=== PATIENT | female | born 1945 | race Caucasian/White ===

== ENCOUNTER → 2018-06-19 | Outpatient (CLI) | payer MEDICARE, BC | END | disposition home or self-care (01) | LOC: LABWHC1 09:57 | PROVIDERS: ATTEND Nurse Practitioner Family | DX: Z01.812 Encounter for preprocedural laboratory examination (principal) | CPT/HCPCS: 36415; 82565; 84520 ==

== ENCOUNTER → 2019-03-29 | Outpatient (CLI) | payer MEDICARE, BC ==
--- NOTE | 2019-03-29 18:01 | ECHOF ---
Referral Reason:I34.0 nonrheumatic mitral regurgitation,I65.23 occ MEASUREMENTS -------- HEIGHT: 160.0 cm WEIGHT: 64.4 kg BP: IVSd: 1.3 cm (0.6 - 1.1) LVIDd: 3.7 cm (3.9 - 5.3) LVPWd: 1.2 cm (0.6 - 1.1) IVSs: 1.6 cm LVIDs: 2.7 cm LVPWs: 1.1 cm LA Diam: 4.3 cm (2.7 - 3.8) LAESV Index (A-L): 31.64 ml/m MV EXCURSION: 12.495 mm (> 18.000) MV EF SLOPE: 53 mm/s (70 - 150) EPSS: 0.4 cm MV E Patricio: 0.52 m/s MV DecT: 204 ms MV A Patricio: 0.53 m/s MV E/A Ratio: 0.98 RAP: 5.00 mmHg RVSP: 23.58 mmHg FINDINGS -------- Sinus rhythm. This was a technically adequate study. The left ventricular size is normal. There is mild concentric left ventricular hypertrophy. Overa ll left ventricular systolic function is normal with, an EF between 55 - 60 %. The right ventricle is normal in size. The left atrium is moderately dilated. LA is moderately dilated 34-39 ml/m2 The right atrial size is normal. There is mild aortic valve sclerosis. There is no evidence of aortic regurgitation. Mild mitral annular calcification present. Mild mitral regurgitation is present. Mild tricuspid regurgitation present. Right ventricular systolic pressure is normal at < 35 mmHg. There is no evidence of pulmonary hypertension. There is no pulmonic regurgitation present. The aortic root size is normal. There is no pericardial effusion. CONCLUSIONS -------- 1. Sinus rhythm. 2. This was a technically adequate study. 3. The left ventricular size is normal. 4. There is mild concentric left ventricular hypertrophy. 5. Overall left ventricular systolic function is normal with, an EF between 55 - 60 %. 6. The right ventricle is normal in size. 7. The left atrium is moderately dilated. 8. LA is moderately dilated 34-39 ml/m2 9. The right atrial size is normal. 10. There is mild aortic valve sclerosis. 11. Mild mitral annular calcification present. 12. Mild mitral regurgitation is present. 13. Mild tricuspid regurgitation present. 14. Right ventricular systolic pressure is normal at < 35 mmHg. 15. There is no evidence of pulmonary hypertension. 16. There is no pulmonic regurgitation present. 17. The aortic root size is normal. 18. There is no pericardial effusion. QUILT STUFFER: Belgica Apple RDCS
--- NOTE | 2019-03-29 19:04 | US ---
EXAMINATION TYPE: US carotid duplex BILAT DATE OF EXAM: 03/29/2019 COMPARISON: NONE CLINICAL HISTORY: I34.0 nonrheumatic mitral regurgitation,I65.23 occ. HTN. No hx TIA. Current smoke r. EXAM MEASUREMENTS: RIGHT: Peak Systolic Velocity (PSV) cm/sec ----- Right CCA: 56.4 ----- Right ICA: 85.8 ----- Right ECA: 87.6 ICA/CCA ratio: 1.5 RIGHT: End Diastole cm/sec ----- Right CCA: 8.2 ----- Right ICA: 28.8 ----- Right ECA: 13.8 LEFT: Peak Systolic Velocity (PSV) cm/sec ----- Left CCA: 72.6 ----- Left ICA: 114.0 ----- Left ECA: 72.6 ICA/CCA ratio: 1.6 LEFT: End Diastole cm/sec ----- Left CCA: 20.4 ----- Left ICA: 35.4 ----- Left ECA: 0.0 VERTEBRALS (direction of flow): Right Vertebral: Antegrade Left Vertebral: Antegrade Rhythm: Arrhythmia Left CCA wall thickening. No significant stenosis or elevated velocities. Plaque seen in left bulb. Grayscale, color Doppler, spectral Doppler imaging performed of the carotid arteries. Waveform analys is does not show significant stenosis. IMPRESSION: No hemodynamic significant stenosis of the proximal internal carotid arteries by Doppler criteria, an indirect measurement of carotid stenosis. Incidental note made of cardiac arrhythmia.
--- NOTE | 2019-04-01 08:24 | CTL ---
EXAMINATION TYPE: CT Low Dose Lung DATE OF EXAM ORDERED: 03/29/2019 HISTORY: 73-year-old female Smoker. Lung cancer screening CT DLP: 65.[address] CTDI: 1.90 mGy Automated exposure control for dose reduction was used. SCREENING VISIT: Baseline COMPARISON: None TECHNIQUE: Low dose computed tomography scan was performed through the chest at 1 mm thick sections a nd reconstructed images in the coronal and sagittal plane. CT DIAGNOSTIC QUALITY: Satisfactory FINDINGS: Heart is upper limits of normal in size without pericardial effusion. Some LAD calcifications are not ed. Ectatic ascending aorta at 3.8 cm with mild atherosclerotic arch calcifications and conventional arch vessel branching anatomy. Ectatic upper descending thoracic aorta 3.1 cm. Ectatic mid and lower desc ending thoracic aorta at 2.8 cm. Large caliber to the main right and left pulmonary arteries and 2.8 and 2.6 cm, respectively, suggest ing underlying pulmonary arterial hypertension. No thoracic lymphadenopathy identified by CT size cri teria. Trace biapical pleural parenchymal scarring. Scattered mild emphysematous change. Some focal volume l oss/consolidation in the inferior lingula. Strandy atelectasis within the lower lungs. Suggestion of a tiny hiatal hernia. Otherwise, visualized upper abdomen shows no gross abnormality by noncontrast, low dose technique. Bones: Levoconvex scoliosis along the upper third thoracic spine. Right-sided cervical rib. IMPRESSION: 1. LungRADS 2 - benign. No suspicious pulmonary nodules. 2. Focal volume loss versus consolidation within the inferior lingula. Correlate for any infectious r espiratory signs/symptoms to exclude a focus of pneumonia here. 3. COPD with mild emphysema. Suspect underlying pulmonary arterial hypertension. RECOMMENDATION: 1. Continue annual low-dose lung cancer screening CT. 2. Smoking cessation. 3. Clinical correlation to differentiate between focal subsegmental atelectasis versus early infiltra te in the inferior lingula. FOLLOW UP CT CHEST RECOMMENDATION: [address] LUNG RAD: Lung-Rad 2 Benign Appearance or Behavior
== END | disposition home or self-care (01) ==
LOC: RADCTMAIN 15:56
PROVIDERS: ATTEND Internal Medicine
DX: I08.3 Combined rheumatic disorders of mitral, aortic and tricuspid valves (principal); I65.23 Occlusion and stenosis of bilateral carotid arteries; Z12.2 Encounter for screening for malignant neoplasm of respiratory organs; R91.8 Other nonspecific abnormal finding of lung field; F17.210 Nicotine dependence, cigarettes, uncomplicated
CPT/HCPCS: 93306; 93880; G0297

== ENCOUNTER → 2021-05-28 | Outpatient (CLI) | payer MEDICARE, BC ==
--- NOTE | 2021-05-28 09:36 | XR ---
EXAMINATION TYPE: XR chest 2V DATE OF EXAM: 05/28/2021 COMPARISON: NONE TECHNIQUE: PA and lateral views submitted. HISTORY: Cough FINDINGS: The lungs are clear and there is no pneumothorax, pleural effusion, or focal pneumonia. Hypertrophi c and degenerative change of the spine. Hyperinflation. Biapical pleural thickening. No overt failure . Atherosclerotic change aorta. Mild cardiomegaly. IMPRESSION: 1. No acute process. Correlate for COPD.
== END | disposition home or self-care (01) ==
LOC: RADXRMAIN 08:44
PROVIDERS: ATTEND Internal Medicine
DX: R05.9 Cough, unspecified (principal)
CPT/HCPCS: 71046

== ENCOUNTER → 2022-03-04 | Outpatient (CLI) | payer MEDICARE, BC ==
--- NOTE | 2022-03-04 14:54 | US ---
EXAMINATION TYPE: US carotid duplex BILAT DATE OF EXAM: 03/04/2022 COMPARISON: NONE CLINICAL HISTORY: I65.23 CAROTID STENOSIS. TECHNIQUE: Carotid duplex ultrasound examination. Indirect Doppler criteria was utilized. FINDINGS: EXAM MEASUREMENTS: RIGHT: Peak Systolic Velocity (PSV) cm/sec ----- Right CCA: 66.3 ----- Right ICA: 66.7 ----- Right ECA: 92.2 ICA/CCA ratio: 1.01 RIGHT: End Diastole cm/sec ----- Right CCA: 10.1 ----- Right ICA: 12.5 ----- Right ECA: 0.0 LEFT: Peak Systolic Velocity (PSV) cm/sec ----- Left CCA: 112.0 ----- Left ICA: 115.0 ----- Left ECA: 99.9 ICA/CCA ratio: 1.03 LEFT: End Diastole cm/sec ----- Left CCA: 14.4 ----- Left ICA: 29.2 ----- Left ECA: 0.0 VERTEBRALS (direction of flow): Right Vertebral: Antegrade Left Vertebral: Antegrade Rhythm: Normal LIGHT EQUIPMENT OPERATOR NOTES: No significant stenosis seen. IMPRESSION: No evidence for hemodynamically significant stenosis. Criteria for Assigning % of Stenosis / Diameter reduction (Estimation based on the indirect measurements of the internal carotid artery velocities (ICA PSV). 1. Normal (no stenosis)=ICA PSV < 125 cm/s: ratio < 2.0: ICA EDV<40 cm/s. 2. Less than 50% stenosis=ICA PSV < 125 cm/s: ratio < 2.0: ICA EDV<40 cm/s. 3. 50 to 69% stenosis=ICA PSV of 125 to 230 cm/s: ration 2.0 ? 4.0: ICA EDV 40-100 cm/s. 4. Greater than 70% stenosis to near occlusion= ICA PSV > 230 cm/s: ratio > 4.0: ICA EDV > 100 cm/s. 5. Near occlusion= ICA PSV velocities may be low or undetectable: variable ratio and ICA EDV. 6. Total occlusion=unable to detect flow.
--- NOTE | 2022-03-05 09:59 | CA ---
Transthoracic Echo Report Name: Nivia Moon Age: 76 Gender: F : 1945 Exam Date: 03/04/2022 14:34 Exam Location: [facility] Ht (in): 63 Wt (lb): 137 Ordering Physician: Yahaira Mares MD Attending/Referring Phys: [employer] Belgica Apple RDCS Procedure CPT: Indications: I34.0 I65.23 Cardiac Hx: Technical Quality: Good Contrast 1: Total Dose (mL): Contrast 2: Total Dose (mL): MEASUREMENTS (Male / Female) Normal Values 2D ECHO LV Diastolic Diameter PLAX 4.1 cm 4.2 - 5.9 / 3.9 - 5.3 cm LV Systolic Diameter PLAX 3.3 cm IVS Diastolic Thickness 1.1 cm 0.6 - 1.0 / 0.6 - 0.9 cm LVPW Diastolic Thickness 1.2 cm 0.6 - 1.0 / 0.6 - 0.9 cm LV Relative Wall Thickness 0.5 LA Systolic Diameter LX 3.6 cm 3.0 - 4.0 / 2.7 - 3.8 cm LA Volume 52.2 cm??? 18 - 58 / 22 - 52 cm??? M-MODE Aortic Root Diameter MM 3.1 cm LA Systolic Diameter MM 4.3 cm LA Ao Ratio MM 1.4 MV E Point Septal Separation 0.2 cm AV Cusp Separation MM 1.5 cm DOPPLER MV Area PHT 4.1 cm??? Mitral E Point Velocity 54.5 cm/s Mitral A Point Velocity 55.6 cm/s Mitral E to A Ratio 1.0 MV Deceleration Time 185.8 ms MV E' Velocity 5.6 cm/s Mitral E to MV E' Ratio 9.7 TR Peak Velocity 250.5 cm/s TR Peak Gradient 25.1 mmHg Right Ventricular Systolic Press 30.1 mmHg FINDINGS Left Ventricle Left ventricular ejection fraction is estimated at 50-55%. Mildly increased left ventricular wall thickness. Right Ventricle Normal right ventricular size and function. Right Atrium Normal right atrial size. Left Atrium Mild left atrial dilatation. Mitral Valve Structurally normal mitral valve. Mild mitral regurgitation. Aortic Valve Trileaflet aortic valve. Aortic valve sclerosis. Tricuspid Valve Structurally normal tricuspid valve. Pulmonic Valve Structurally normal pulmonic valve. Pericardium Normal pericardium. Aorta Normal size aortic root and proximal ascending aorta. CONCLUSIONS Normal left ventricular dimension and systolic function Previewed by: Dr. Jered Colmenares MD (Electronically Signed) Final Date: 05 March 2022 09:59
== END | disposition home or self-care (01) ==
LOC: RADUSWWP 14:07
PROVIDERS: ATTEND Internal Medicine
DX: I65.23 Occlusion and stenosis of bilateral carotid arteries (principal); I34.0 Nonrheumatic mitral (valve) insufficiency
CPT/HCPCS: 93306; 93880

== ENCOUNTER → 2024-04-04 | Outpatient (CLI) | payer MEDICARE, BC ==
--- NOTE | 2024-04-05 09:49 | MM ---
Reason for Exam: Screening (asymptomatic). Last mammogram was performed 1 year(s) and 1 month(s) ago. Patient History: Menarche at age 10. First Full-Term at age 18. Hysterectomy at age 32. Postmenopausal. Daughter had breast cancer at or over age 50. Risk Values: Myah 5 year model risk: 3.1%. NCI Lifetime model risk: 4.8%. Prior Study Comparison: 03/05/2022 Bilateral Screening Mammogram, [facility]. 03/05/2023 Bilateral MG 3D screening mammo w/cad, [facility]. 03/10/2023 Right MG 3D work up w/cad RT, [facility]. Tissue Density: The breasts are heterogeneously dense, which may obscure small masses. Findings: Analyzed By CAD. Right breast: There is no suspicious group of microcalcifications or new suspicious mass. Left breast: There is no suspicious group of microcalcifications or new suspicious mass. Overall Assessment: Negative, BI-RAD 1 Management: Screening Mammogram of both breasts in [address] [facility] will attempt to contact patient to return for supplemental views and ultrasound if indicated. Patient should continue monthly self-breast exams. A clinical breast exam by your physician is recommended on an annual basis. This exam should not preclude additional follow-up of suspicious palpable abnormalities. Note on Myah scores and lifetime risk: 1. A Myah score greater than 3% is considered moderate risk. If this is the case, consider specialist referral to assess eligibility for a risk reducing agent. 2. If overall lifetime risk for the development of breast cancer is 20% or higher, the patient may qualify for future screening with alternating mammogram and breast MRI. [facility], , 04/05/2024 9:46 AM. Electronically signed and approved by: Manan Sullivan DO
== END | disposition home or self-care (01) ==
LOC: RADMAMWWP 04-01 13:48
PROVIDERS: ATTEND Internal Medicine
CPT/HCPCS: 77063; 77067

== ENCOUNTER → 2024-04-07 | Outpatient (CLI) | payer MEDICARE, BC ==
--- NOTE | 2024-04-07 15:32 | US ---
EXAMINATION TYPE: US carotid duplex BILAT DATE OF EXAM: 04/07/2024 COMPARISON: 03/04/2022 CLINICAL INDICATION: Female, 78 years old with history of I65.23 STENOSIS; Patient denies any signs o r symptoms at this time Medically necessarily indication *REQUIRED: Bilateral Stenosis TECHNIQUE: Grayscale, color Doppler and spectral Doppler evaluation of the bilateral carotid systems and vertebral arteries. Indirect Doppler criteria was utilized. FINDINGS: EXAM MEASUREMENTS: RIGHT: Peak Systolic Velocity (PSV) cm/sec ----- Right CCA: 50 ----- Right ICA: 63 ----- Right ECA: 69 ICA/CCA ratio: 1.3 RIGHT: End Diastole cm/sec ----- Right CCA: 10 ----- Right ICA: 20 ----- Right ECA: 10 LEFT: Peak Systolic Velocity (PSV) cm/sec ----- Left CCA: 49 ----- Left ICA: 87 ----- Left ECA: 74 ICA/CCA ratio: 1.8 LEFT: End Diastole cm/sec ----- Left CCA: 10 ----- Left ICA: 18 ----- Left ECA: 14 VERTEBRALS (direction of flow): Right Vertebral: Antegrade Left Vertebral: Antegrade Rhythm: Arrhythmia; Image 21, 43 DRILLING FIELD OPERATOR NOTES: No intimal thickening, plaque, or elevated velocities seen. Calcifications seen mi d/distal left CCA IMPRESSION: No evidence for hemodynamically significant stenosis. Criteria for Assigning % of Stenosis / Diameter reduction (Estimation based on the indirect measurements of the internal carotid artery velocities (ICA PSV). 1. Normal (no stenosis)=ICA PSV < 125 cm/s: ratio < 2.0: ICA EDV<40 cm/s. 2. Less than 50% stenosis=ICA PSV < 125 cm/s: ratio < 2.0: ICA EDV<40 cm/s. 3. 50 to 69% stenosis=ICA PSV of 125 to 230 cm/s: ration 2.0 ? 4.0: ICA EDV 40-100 cm/s. 4. Greater than 70% stenosis to near occlusion= ICA PSV > 230 cm/s: ratio > 4.0: ICA EDV > 100 cm/s. 5. Near occlusion= ICA PSV velocities may be low or undetectable: variable ratio and ICA EDV. 6. Total occlusion=unable to detect flow. [facility], , 04/07/2024 3:30 PM
== END | disposition home or self-care (01) ==
LOC: RADUSWWP 14:52
PROVIDERS: ATTEND Internal Medicine
DX: I65.23 Occlusion and stenosis of bilateral carotid arteries (principal)
CPT/HCPCS: 93880